=== PATIENT | female | born 1940 | race Caucasian/White ===

== ENCOUNTER 2016-10-24 05:25 | Inpatient (IN) | payer OTHER ==
[2016-10-17 10:15] LABS: BASOPHILS 0.3 %; BASOPHILS ABSOLUTE 0.02 10/3/uL (0.0-0.16); EOSINOPHILS 2.4 %; EOSINOPHILS ABSOLUTE 0.14 10/3/uL (0.0-0.53); HEMATOCRIT 36.4 % (36.0-48.0); HEMOGLOBIN 12.1 g/dL (12.0-16.0); IMMATURE GRANULOCYTES 0.2 %; IMMATURE GRANULOCYTES ABSOLUTE 0.01 10/3/uL (0.0-0.11); LYMPHOCYTES 48.4 %; LYMPHOCYTES ABSOLUTE 2.87 10/3/uL (0.67-4.30); MEAN CORPUS HGB CONC 33.2 g/dL (32.0-36.0); MEAN CORPUSCULAR HEMOGLOB 28.1 pg (26.0-34.0); MEAN CORPUSCULAR VOLUME 84.7 fL (80-100); MEAN PLATELET VOLUME 10.1 fL (9.2-13.0); MONOCYTES 7.9 %; MONOCYTES ABSOLUTE 0.47 10/3/uL (0.21-1.20); NEUTROPHILS 40.8 %; NEUTROPHILS ABSOLUTE 2.42 10/3/uL (2.02-8.40); PLATELET COUNT 178 10/3/uL (150-400); RBC DISTRIBUTION WIDTH 13.6 % (12.0-16.0)
[2016-10-17 10:16] LABS: MANUAL DIFF NO %; WHITE BLOOD CELLS 5.9 10/3/uL (4.5-10.5)
[2016-10-17 10:19] LABS: ASCORBIC ACID (UR NOT ORDER) NEG (NEG); BILIRUBIN, URINE NEGATIVE (NEG); KETONE, URINE NEGATIVE (NEG); LEUKOCYTE ESTERASE(NOT OR NEG (NEG); WBC (NOT ORDERED) (RFLEX) < 1 (0-5)
[2016-10-17 10:22] LABS: INTERNATIONAL NORMAL RATI 1.1 UNITS (-); PARTIAL THROMBO TIME 39.6 SEC (22.5-37.2); PROTIME (NOT ORD) 13.6 SEC (12.0-14.5)
[2016-10-17 10:28] LABS: BUN (BLOOD UREA NITROGEN) 17 MG/DL (6-23); CALCIUM, SERUM 9.2 MG/DL (8.5-10.4); CHLORIDE, SERUM 102 MMOL/L (96-112); CO2 (CARBON DIOXIDE) 30 MMOL/L (24-34); GFR AFRICAN AMERICAN 72 ML/MIN (>=60); GFR NON AFRICAN AMERICAN 62 ML/MIN (>=60); GLUCOSE, SERUM 86 MG/DL (60-99); POTASSIUM, SERUM 3.8 MMOL/L (3.5-5.3); SODIUM, SERUM 137 MMOL/L (135-148)
--- NOTE | ~2016-10-24 | OP ---
Record Of Operation [facility] [address]. [address] NAME: ZARINA ROSARIO : 39 STATUS : ADM IN PAT#: [id number] AGE: 75 ADM/REG DATE : 10/24/16 MR#: [id number] REPORT SERV DATE: 10/24/16 DICTATED BY: PASCUAL GREGG DATE: 10/24/16 REPORT STATUS : Draft TRANSCRIBED BY: MODL DATE: 10/24/16 DATE OF PROCEDURE: 10/24/2016 PREOPERATIVE DIAGNOSIS: Right renal mass. POSTOPERATIVE DIAGNOSIS: Cystic clear cell renal cell carcinoma, low-grade. PROCEDURE: Laparoscopic right partial nephrectomy. COMPUTER PUBLISHER: Tomy Barrientos. ANESTHESIA: General. ESTIMATED BLOOD LOSS: 25 mL. FLUID REPLACEMENT: 1 L of crystalloid. DRAINS: A 16-Monegasque Gregg catheter per urethra and a 15 mm Fan drain in the right renal fossa. Right renal artery clamp time, 22 minutes. INDICATIONS: A 75-year-old white female with a 2.5 cm right renal mass. TECHNIQUE: The patient was identified and brought to the operating room, administered general anesthetic agent by the Anesthesia Service, and intubated. A Gregg catheter was placed in the bladder. She was laid into the right flank position with the left flank down, the right flank elevated, the kidney rest elevated, and table slightly flexed. She was appropriately padded and secured to the table. The abdomen and right flank are prepped with a DuraPrep and draped in usual sterile fashion. A curvilinear incision was made along the right border of the umbilicus. It was carried down to the fascia. Holding sutures were placed in the fascia. The fascia was elevated and incised sharply. The underlying peritoneum was identified and opened sharply. A balloon trocar was placed into the peritoneal space and a pneumoperitoneum was created by insufflating carbon dioxide. The abdominal pressure was raised to 15 mmHg and held there through the entire case until otherwise specified. I then placed four robotic trocars roughly along the midclavicular line on the right side, starting just underneath the costal margin. They were spaced approximately 7 cm apart. I later placed a 5 mm port near the xiphoid and it was used to retract the liver. I began with straight laparoscopic skills incising the avascular line of Toldt and mobilizing the colon medially. I carried this around the hepatic flexure. The psoas muscle was identified. The lower pole the kidney was identified. Gerota's fascia was opened sharply. The kidney was mobilized inside Gerota's fascia. I at this point placed the 5 mm port near the xiphoid and used a ratcheted locking grasper to retract the liver. Record Of Operation [facility] [address]. [address] NAME: ZARINA ROSARIO : 39 STATUS : ADM IN PAT#: [id number] AGE: 75 ADM/REG DATE : 10/24/16 MR#: [id number] REPORT SERV DATE: 10/24/16 DICTATED BY: PASCUAL GREGG DATE: 10/24/16 REPORT STATUS : Draft TRANSCRIBED BY: EMELY DATE: 10/24/16 I hen brought the da [place] robot and Mated to the ports. This was the Xi robot. I continued my dissection exposing the renal hilum. The large trunk of the right renal artery was identified and exposed. The renal vein was identified, but not exposed as much. The tumor was seen protruding from the lateral mid border of the right kidney. I scored well around this tumor with the cautery. I then clamped the right renal artery and dissected out the tumor. The tumor was placed into a specimen retrieval bag and sent to Pathology. The pathologist, Dr. Leon, examined it. She said it was a very close margin, maybe less than a millimeter, but it was a low-grade clear cell carcinoma. At this point, I decided that although the margin distance was not much, she said it was right at the base, which was near the renal hilum. Additionally, the threat from a low-grade clear cell carcinoma did not justify removing the kidney entirely. I therefore closed some of the collecting system with a running 3-0 V-Loc. I then used horizontal mattress sutures to close the defect in the renal parenchyma using 2-0 V-Loc. Once I had this done, I released the clamp. I lowered the abdominal pressure. Fastidious hemostasis was achieved. I irrigated. I then closed Gerota's fascia with running 3-0 V-Loc. A 15 mm Fan drain had been placed through the most inferior port and left posterior to the kidney. The port was removed and the drain was sutured to skin with 2-0 Prolene. I then irrigated and cleaned. Fastidious hemostasis was maintained. I removed the ports. I closed the umbilical port with a [id number] 0 Vicryl sutures. The subcutaneous tissue was reapproximated with 3- 0 Vicryl and the skin of all ports was closed with 4-0 Monocryl. A dressing of Dermabond was applied. The patient was awakened and taken to the recovery unit in stable and satisfactory condition. PATTY/EMELY Pascual Gregg M.D. / [id number] CC: Pascual Gregg M.D.
--- NOTE | ~2016-10-24 | PREOPHP ---
PreOp History and Physical [facility] [id number] [place]. [address] NAME: ZARINA DIAZ : 39 STATUS : PRE IN PAT#: [id number] AGE: 75 ADM/REG DATE : MR#: [id number] REPORT SERV DATE: 10/23/16 DICTATED BY: PASCUAL GREGG DATE: 10/23/16 REPORT STATUS : Draft TRANSCRIBED BY: MODL DATE: 10/23/16 CHIEF COMPLAINT: Right upper pole renal mass. HISTORY OF PRESENT ILLNESS: Ms. Diaz is a 75-year-old white female, had an episode of diverticulitis in 04/2016. She had a CT scan of the abdomen and pelvis revealing a 2.5 cm right upper pole renal mass. She has recovered from her diverticular disease and has had a discussion regarding the management of the right upper pole solid renal mass. It is believed to be a renal cell carcinoma. She has consented for a laparoscopic robot-assisted right partial nephrectomy possible open and possible complete nephrectomy. She will undergo that procedure today and then be admitted. She denies any flank pain, nausea, vomiting, or hematuria. PAST MEDICAL HISTORY: Diverticulitis, hypertension, and osteoporosis. PAST SURGICAL HISTORY: Tubal ligation, lipoma removal, and cataract surgery. MEDICATIONS: Clonidine, lisinopril, levothyroxine, pantoprazole, zolpidem, Yasmin, Tylenol, and aspirin, which has been on hold. ALLERGIES: TO PENICILLIN. 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 She never drank. FAMILY HISTORY: Negative for any renal masses or cancers. She does have a family history of urolithiasis. REVIEW OF SYSTEMS: Thyroid problems, heartburn, constipation, hypertension, hoarseness, wears glasses, back pain, and arthritis. PHYSICAL EXAMINATION: GENERAL: Well-developed well-nourished white female, in no acute distress. She is awake, alert, oriented x3. HEENT: Sclerae anicteric. NECK: Supple. LUNGS: Clear. HEART: Regular rate and rhythm. ABDOMEN: Soft, nontender, no palpable abdominal masses. No hepatosplenomegaly. Flanks are nontender. Kidneys are not palpable. Bladder is not distended. EXTREMITIES: Lower extremities show no deformities. STUDIES: Serum creatinine 1.0. CT scan of the abdomen and pelvis reveals a 2.5 cm endophytic right mid to upper pole renal mass without any evidence of adenopathy or other disease. PLAN: Laparoscopic robot-assisted right partial nephrectomy, possible open, possible PreOp History and Physical [address] [address] NAME: ZARINA DIAZ : 39 STATUS : PRE IN PAT#: [id number] AGE: 75 ADM/REG DATE : MR#: [id number] REPORT SERV DATE: 10/23/16 DICTATED BY: PASCUAL GREGG DATE: 10/23/16 REPORT STATUS : Draft TRANSCRIBED BY: MODL DATE: 10/23/16 complete nephrectomy. Potential complications of bleeding, infection, urinary fistula, renal failure, and injury to adjacent structures such as diaphragm, pleura, lung, colon, gallbladder, small intestine, liver, blood vessels, and nerves have all been explained to the patient. She both manually and verbally consents to proceed as planned. PF/EMELY Pascual Gregg M.D. / [id number] CC: Lulú Guajardo M.D.
--- NOTE | ~2016-10-24 | CN ---
Consultation Report [facility] [address] [place]. [address] NAME: ZARINA ROSARIO : 39 STATUS : ADM IN PAT#: [id number] AGE: 75 ADM/REG DATE : 10/24/16 MR#: [id number] REPORT SERV DATE: 10/26/16 DICTATED BY: ARACELI MURCIA DATE: 10/26/16 REPORT STATUS : Draft TRANSCRIBED BY: MODL DATE: 10/26/16 HOSPITALIST CONSULTATION DATE OF CONSULTATION: 10/26/2016 REASON FOR CONSULTATION: Sudden onset atrial fibrillation with RVR. HISTORY OF PRESENT ILLNESS: This is an awake, alert, and oriented, very pleasant 75-year-old female, who was admitted on 10/24/[address] Pascual Harp. She was found to have a mass on her right kidney and has subsequently undergone a right nephrectomy on 10/24/2016. We have been asked to follow this patient for sudden onset atrial fibrillation, where her heart rate has gotten up to the 200s. A 12-lead EKG confirms atrial fibrillation with RVR. The patient denies any previous cardiac history, noting only a history of hypertension. The patient denies chest pain, palpitations, syncope or near syncope, dyspnea, headache, or dizziness. PAST MEDICAL HISTORY: Significant for: 1. Right renal mass. 2. Hypertension. 3. Osteoarthritis. 4. GERD. 5. Diverticulitis. 6. Hypothyroidism. 7. Anxiety. PAST SURGICAL HISTORY: Significant for: 1. Right nephrectomy, 10/24/2016. 2. Tubal ligation. 3. Lipoma removed from her neck in . 4. Colonoscopy with polyps removed, 04/2016. The patient follows with Dr. Ned Phelps, for Gastroenterology. The patient follows with Dr. Pascual Harp for Urology. The patient denies following with Cardiology. SOCIAL HISTORY: The patient denies alcohol, tobacco, or illicit drug use. FAMILY HISTORY: Mother had a history of a heart attack and from complications related to bilateral pneumonia. Father had history of hypertension, but of "old age." The patient has a sister, who with sudden heart attack and another sister who is for "heart trouble and COPD." ALLERGIES: PENICILLIN. HOME MEDICATIONS: Consultation Report [facility] [address] [place]. [address] NAME: ZARINA ROSARIO : 39 STATUS : ADM IN PAT#: [id number] AGE: 75 ADM/REG DATE : 10/24/16 MR#: [id number] REPORT SERV DATE: 10/26/16 DICTATED BY: ARACELI MURCIA DATE: 10/26/16 REPORT STATUS : Draft TRANSCRIBED BY: MODJori DATE: 10/26/16 1. Aspirin 81 mg p.o. daily. 2. Caltrate 600 + D 600 mg p.o. daily. 3. Clonidine 0.1 mg p.o. twice daily. 4. Osteo Bi-Flex one tab p.o. daily. 5. Levothyroxine 25 mcg p.o. q.a.m. 6. Lisinopril 40 mg p.o. q.a.m. 7. Multivitamin one tab p.o. daily. 8. Protonix 40 mg p.o. twice daily. 9. PreserVision vitamin one caplet p.o. twice daily. 10.Ambien 5 mg p.o. at bedtime p.r.n. REVIEW OF SYSTEMS: A complete 10-point review of systems was negative except as per HPI. PHYSICAL EXAMINATION: VITAL SIGNS: Temperature 99.1, pulse 128, respiratory rate 26, SpO2 96% on room air, and blood pressure 171/90. GENERAL: Well-appearing female, in no acute distress. NEURO: Awake, alert, and oriented, without focal deficit. HEENT: Normocephalic, atraumatic without lymphadenopathy. NECK: Supple. No JVD. LUNGS: CTA in all lung hassan with normal respiratory effort. CARDIOVASCULAR: Rapid and irregular rhythm noted. S1 and S2 auscultated. No murmur appreciated. ABDOMEN: Soft, round, and nontender with hypoactive bowel sounds in all quadrants. No masses. EXTREMITIES: No cyanosis or edema with normal distal pulses. Cap refill within normal limits. PSYCH: Normal affect. SKIN: Clean, dry, and intact with mucous membranes pink and moist. AJ drain to surgical site is patent to bulb suction. PERTINENT LABORATORY DATA: Sodium 135, potassium 4.5, BUN and creatinine 11 and 1.27. Serum glucose 149, magnesium 2.2. Hemoglobin and hematocrit 10.8 and 32.2, and white count 5.9. PERTINENT IMAGING: EKG reviewed by me as well as Dr. El Barton, supervising physician confirms atrial fibrillation with RVR at a rate of 154. ASSESSMENT AND PLAN: 1. Atrial fibrillation with rapid ventricular rate. New onset with no previous history. We will obtain stat labs and give IV beta hawk to help slow her heart rate up to three doses. We will require med/surg telemetry and repeat EKG in a.m. We will monitor frequent vital signs tonight q.1 hour. 2. Hypertension, this is chronic and uncontrolled as an outpatient with several medication changes. We will continue her current treatment as well as adding p.r.n. IV Consultation Report [facility] [address] [place]. [address] NAME: ZARINA ROSARIO : 39 STATUS : ADM IN PAT#: [id number] AGE: 75 ADM/REG DATE : 10/24/16 MR#: [id number] REPORT SERV DATE: 10/26/16 DICTATED BY: ARACELI MURCIA DATE: 10/26/16 REPORT STATUS : Draft TRANSCRIBED BY: EMELY DATE: 10/26/16 antihypertensives and monitoring frequent vital signs this evening. 3. Hypothyroid, this is chronic and the patient is unsure of her most recent lab values. We will monitor her lab values and include a thyroid panel with close monitoring of vital signs including heart rate tonight. 4. Anxiety, this is chronic. The patient currently does not take medications for her anxiety. She reports feeling anxious upon entering the hospital, but that has subsided since her surgery. We will monitor her and provide supportive care as needed. 5. Post right nephrectomy. She is postop day #1 and we will defer the management of this to the primary team. Thank you for this consult. We are pleased to follow this patient with you. This consult was completed through thorough review of [facility], old records, [employer], current chart, as well as thorough interview with the patient. CARRI/EMELY Araceli Murcia NP / [id number] CC: Lulú Guajardo utwala, M.D.
--- NOTE | ~2016-10-24 | DS ---
Discharge Summary [facility] [address] [place]. [address] NAME: ZARINA ROSARIO : 39 STATUS : DIS IN PAT#: [id number] AGE: 75 ADM/REG DATE : 10/24/16 MR#: [id number] REPORT SERV DATE: 10/29/16 DICTATED BY: PASCUAL GREGG DATE: 10/28/16 REPORT STATUS : Draft TRANSCRIBED BY: EMELY DATE: 10/28/16 ADMISSION DATE: 10/24/2016 DISCHARGE DATE: 10/28/2016 DIAGNOSIS: Right renal mass (verbal report of a low-grade cystic clear cell renal cell carcinoma). OTHER DIAGNOSES: Hypertension, postoperative transient atrial fibrillation. PROCEDURE IN THIS HOSPITALIZATION: Laparoscopic robot-assisted right partial nephrectomy. For complete history of present illness, please see dictated H and P. HOSPITAL COURSE: The patient came to the hospital and underwent the above-mentioned procedure. Postoperatively, she had a Gregg catheter draining her bladder and a Fan drain in the right renal fossa. Her right renal artery clamp time was 22 minutes. On the first postoperative morning, she had quite a bit of nausea and vomiting. She was kept on IV fluids and made n.p.o. She was noted to have atrial fibrillation and cardiology consult was obtained. They treated her with some calcium-channel blockers and she reverted back to normal sinus rhythm. Her nausea subsided. There was very little output from the Fan drain. The Gregg catheter was removed. She was advanced to a regular diet. Once she tolerated that, she was ready for discharge. She was discharged home on the same medications she was admitted to the hospital on. She will resume her aspirin starting now. Her postoperative creatinine was 1.1 on postop day #2, slight up. Her followup will be with Dr. Gregg in one week. She has instructions for no driving for two weeks. Final pathology is pending. DICTATED BY: Lulú Guajardo/EMELY Pascual Gregg M.D. / [id number] CC: Lulú Guajardowala, M.D.
[~2016-10-24 05:25] MED LIST: AMB5 PO; ASAB PO; CALTRA600D PO; CAT1 PO; LEVOTHYROXIN25 MCG PO; LISINOPRIL40 MG PO; MULTIVIT/MIN PO; OSTEO BI-FLEX1 EACH PO; PROTONIX PO; [UNRECOGNIZED DRUG - OTHER] PO
[2016-10-24 06:27] LABS: INTERNATIONAL NORMAL RATI 1.1 UNITS (-); PARTIAL THROMBO TIME 38.6 SEC (22.5-37.2)
[2016-10-25 05:56] LABS: HEMOGLOBIN 10.8 g/dL (12.0-16.0)
[2016-10-25 05:58] LABS: HEMATOCRIT 32.2 % (36.0-48.0)
[2016-10-25 06:08] LABS: CALCIUM, SERUM 8.5 MG/DL (8.5-10.4); CHLORIDE, SERUM 102 MMOL/L (96-112); CO2 (CARBON DIOXIDE) 26 MMOL/L (24-34); CREATININE 1.27 MG/DL (0.55-1.02); GFR AFRICAN AMERICAN 47 ML/MIN (>=60); GFR NON AFRICAN AMERICAN 41 ML/MIN (>=60); POTASSIUM, SERUM 4.5 MMOL/L (3.5-5.3); SODIUM, SERUM 135 MMOL/L (135-148)
[2016-10-25 06:09] LABS: BUN (BLOOD UREA NITROGEN) 11 MG/DL (6-23); GLUCOSE, SERUM 149 MG/DL (60-99)
[2016-10-26 03:26] LABS: BASOPHILS 0 %; EOSINOPHILS 0 %; HEMATOCRIT 31.5 % (36.0-48.0); HEMOGLOBIN 10.6 g/dL (12.0-16.0); IMMATURE GRANULOCYTES 0.3 %; IMMATURE GRANULOCYTES ABSOLUTE 0.03 10/3/uL (0.0-0.11); LYMPHOCYTES 8.4 %; LYMPHOCYTES ABSOLUTE 0.93 10/3/uL (0.67-4.30); MEAN CORPUS HGB CONC 33.7 g/dL (32.0-36.0); MEAN CORPUSCULAR HEMOGLOB 28.8 pg (26.0-34.0); MEAN CORPUSCULAR VOLUME 85.6 fL (80-100); MEAN PLATELET VOLUME 10.3 fL (9.2-13.0); MONOCYTES 6.8 %; MONOCYTES ABSOLUTE 0.75 10/3/uL (0.21-1.20); NEUTROPHILS 84.5 %; NEUTROPHILS ABSOLUTE 9.38 10/3/uL (2.02-8.40); PLATELET COUNT 125 10/3/uL (150-400); RBC DISTRIBUTION WIDTH 14.3 % (12.0-16.0); RED CELL COUNT 3.68 10/6/uL (4.0-5.6)
[2016-10-26 03:32] LABS: MANUAL DIFF NO %; WHITE BLOOD CELLS 11.1 10/3/uL (4.5-10.5)
[2016-10-26 03:37] LABS: BUN (BLOOD UREA NITROGEN) 11 MG/DL (6-23); CALCIUM, SERUM 8.3 MG/DL (8.5-10.4); CHLORIDE, SERUM 104 MMOL/L (96-112); CO2 (CARBON DIOXIDE) 26 MMOL/L (24-34); CREATININE 1.28 MG/DL (0.55-1.02); GFR AFRICAN AMERICAN 47 ML/MIN (>=60); GFR NON AFRICAN AMERICAN 41 ML/MIN (>=60); GLUCOSE, SERUM 128 MG/DL (60-99); POTASSIUM, SERUM 4.3 MMOL/L (3.5-5.3); SODIUM, SERUM 135 MMOL/L (135-148)
[2016-10-26 03:43] LABS: A/G RATIO 0.8 (0.7-1.9); ALBUMIN 2.7 G/DL (3.5-5.0); ALKALINE PHOSPHATASE 70 U/L (45-117); BUN (BLOOD UREA NITROGEN) 11 MG/DL (6-23); CALCIUM, SERUM 8.4 MG/DL (8.5-10.4); CHLORIDE, SERUM 105 MMOL/L (96-112); CO2 (CARBON DIOXIDE) 25 MMOL/L (24-34); CREATININE 1.22 MG/DL (0.55-1.02); GFR AFRICAN AMERICAN 50 ML/MIN (>=60); GFR NON AFRICAN AMERICAN 43 ML/MIN (>=60); GLOBULIN 3.4 G/DL (2.5-4.1); GLUCOSE, SERUM 127 MG/DL (60-99); POTASSIUM, SERUM 4.4 MMOL/L (3.5-5.3); SGOT(AST) 50 U/L (5-40); SGPT(ALT) 62 U/L (5-65); SODIUM, SERUM 137 MMOL/L (135-148); T3 UPTAKE 42 % (30-45); T4 (THYROXINE) TOTAL 10.3 MCG/DL (4.5-12.0); TOTAL BILIRUBIN 0.9 MG/DL (0-1.2); TOTAL PROTEIN 6.1 G/DL (6.0-8.5); TROPONIN I <0.02 NG/ML (<0.05)
[2016-10-27 05:51] LABS: BUN (BLOOD UREA NITROGEN) 8 MG/DL (6-23); CHLORIDE, SERUM 104 MMOL/L (96-112); CO2 (CARBON DIOXIDE) 24 MMOL/L (24-34); GFR AFRICAN AMERICAN 56 ML/MIN (>=60); GFR NON AFRICAN AMERICAN 49 ML/MIN (>=60); GLUCOSE, SERUM 116 MG/DL (60-99); POTASSIUM, SERUM 4.1 MMOL/L (3.5-5.3); SODIUM, SERUM 133 MMOL/L (135-148)
[2016-10-28] MEDS ORDERED: NORCO1 TA1 PO (07:58)
[2016-10-28] MEDS ORDERED: COREG3 PO (12:29)
[2016-10-28] MEDS ORDERED: ELIQUIS 2.5 MG2.5 MG PO (12:30)
== END 2016-10-28 15:28 | disposition home or self-care (01) | DRG 658 ==
LOC: SDC/OF 05:25 → PACU 10:54 → 4SO 13:57
PROVIDERS: Internal Medicine; Nurse Practitioner Family; Urology
PROC: 0TB04ZZ Excision of Right Kidney, Percutaneous Endoscopic Approach (ICD-10-PCS; principal; 2016-10-24 06:30)
PROC: 8E0W4CZ Robotic Assisted Procedure of Trunk Region, Percutaneous Endoscopic Approach (ICD-10-PCS; principal; 2016-10-24 06:30)
DX: C64.1 Malignant neoplasm of right kidney, except renal pelvis (principal); I48.0 Paroxysmal atrial fibrillation; K57.90 Diverticulosis of intestine, part unspecified, without perforation or abscess without bleeding; I10 Essential (primary) hypertension; M81.0 Age-related osteoporosis without current pathological fracture; Z79.82 Long term (current) use of aspirin; Z88.0 Allergy status to penicillin; E03.9 Hypothyroidism, unspecified; M19.90 Unspecified osteoarthritis, unspecified site; K59.00 Constipation, unspecified; K21.9 Gastro-esophageal reflux disease without esophagitis; F41.9 Anxiety disorder, unspecified
CPT/HCPCS: 80048; 80053; 81001; 82570; 83735; 83880; 84436; 84443; 84479; 84484; 85014; 85018; 85025; 85610; 85730; 88307; 88331; 88332; 93005; 93306; A9270-GY; J0360; J0690; J2250; J2405; J2550; J2710; J2795; J3010